=== PATIENT | female | born 1950 | race Hispanic/Latino ===

== ENCOUNTER → 2018-10-18 | Outpatient (CLI) | payer MEDICARE ==
[~2018-10-18] MED LIST: ASPIR 8181 MG PO; CIPRO500 MG PO; FLAGYL250 MG PO; HYDROCHLOROTHIA25 MG PO; LEVOTHYROXINE25 MCG PO; LOSARTAN POTAS100 MG PO; LOVASTATIN40 MG PO; METFORMIN HCL500 MG PO; PRILOSEC40 MG PO; REGLAN10 MG PO; TYLENOL WITH C1 EACH PO
--- NOTE | 2018-10-18 14:41 | Diagnostic Imaging Report ---
Renal ultrasound. History: Partial left nephrectomy for malignancy. Comparison: MRI July 19, 2016 Findings: Transverse and longitudinal imaging of the kidneys and bladder. The kidneys are normal in echogenicity and size. Negative for mass, hydronephrosis, or echogenic stone. Prior partial left nephrectomy. The right kidney measures 10.8 x 4.2 x 4.2 cm in length and the left kidney measures 10.9 x 5.3 x 3.7 cm in length. The right renal cortex measures 1.3 cm. The left renal cortex measures 1.6 cm. No bladder abnormalities identified. Bilateral urinary bladder ureteral jets are seen. Impression: Prior partial left fracture. Otherwise, unremarkable renal ultrasound. Signed by: Dr. Tim Soto M.D. on 10/18/2018 2:37 PM
== END ==
LOC: US 12:10
PROVIDERS: ATTEND Urology
DX: C64.9 Malignant neoplasm of unspecified kidney, except renal pelvis (principal)
CPT/HCPCS: 76770

== ENCOUNTER → 2019-05-04 | Outpatient (CLI) | payer MEDICARE ==
--- NOTE | 2019-05-04 09:59 | Diagnostic Imaging Report ---
EXAMINATION: CHEST 2 VIEWS INDICATION: Renal malignancy COMPARISON: None FINDINGS: LINES/TUBES:None LUNGS:The lungs are well-inflated. No focal consolidation or pulmonary edema. PLEURA:No pleural effusion or pneumothorax. MEDIASTINUM:The heart is at the upper limits of normal for size. Atherosclerotic calcifications of the thoracic aorta. BONES/SOFT TISSUES:No acute osseous injury. ABDOMEN:No free air under the diaphragm. Surgical clips in the abdomen. IMPRESSION: No focal pneumonia or pulmonary edema. No radiographically apparent pulmonary nodule. Signed by: Tal Whatley MD on 05/04/2019 9:56 AM
--- NOTE | 2019-05-04 10:01 | Diagnostic Imaging Report ---
EXAM: Renal Ultrasound INDICATION: ^[id number] ^[id number] ^RENAL CYST / NEOPLASM OF KIDNEY COMPARISON: Renal ultrasound of 10/18/2018 TECHNIQUE: Transverse and longitudinal images of the kidneys and bladder were obtained. FINDINGS: Right Kidney: Length: 11.1 cm Appearance: Normal echogenicity. Collecting system: No hydronephrosis Stones: None Cyst/Mass: None Left Kidney: Length: 10.5 cm Appearance: Normal echogenicity. Collecting system: No hydronephrosis Stones: None Cyst/Mass: None Bladder: No mass or calculi. Bilateral ureteral jets visualized. Prevoid volume estimate of 131.6 cc. IMPRESSION: No hydronephrosis, renal calculi or solid mass lesions. Signed by: Tal Whatley MD on 05/04/2019 9:57 AM
== END ==
LOC: US 08:53
PROVIDERS: ATTEND Urology
DX: C64.9 Malignant neoplasm of unspecified kidney, except renal pelvis (principal); N28.1 Cyst of kidney, acquired
CPT/HCPCS: 71046; 76770

== ENCOUNTER → 2021-02-04 | Outpatient (CLI) | payer MEDICARE | LOC: US 07:16 | PROVIDERS: ATTEND Urology | DX: C64.9 Malignant neoplasm of unspecified kidney, except renal pelvis (principal) | CPT/HCPCS: 76770 ==